=== PATIENT | male | born 1990 | race Two or more races ===

== ENCOUNTER 2017-06-13 03:47 | Emergency (ER) | payer SELFPAY ==
[~2017-06-13] VITALS: Ht 170.2 cm; Wt 59.0 kg
[2017-06-13] VITALS (7 sets, daily range): BP systolic 117–136; BP diastolic 79–89
[2017-06-13] MEDS ORDERED: LORazepam Inj 2mg/ml 1ml IM ONE (04:00)
[2017-06-13] MEDS ORDERED: Haloperidol 5mg/ml Inj IM ONE (04:00)
[2017-06-13 05:38] LABS: BASOPHILS % (AUTO) 1.6 % (0.0-2.0); EOSINOPHILS % (AUTO) 1.7 % (0.0-3.0); LYMPHOCYTES % (AUTO) 28.1 % (20.0-45.0); MEAN CORPUSCULAR HGB CONC 34.4 G/DL (32.0-36.0); MEAN CORPUSCULAR VOLUME 87 FL (80-99); MEAN PLATELET VOLUME 8.2 FL (6.5-10.1); MONOCYTES % (AUTO) 10.4 % (1.0-10.0); NEUTROPHILS % (AUTO) 58.2 % (45.0-75.0); PLATELET COUNT 262 K/UL (150-450); RED BLOOD COUNT 4.82 M/UL (4.70-6.10); RED CELL DISTRIBUTION WIDTH 10.7 % (11.6-14.8); WHITE BLOOD COUNT 7.6 K/UL (4.8-10.8)
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
[2017-06-13 05:48] LABS: ACETAMINOPHEN < 10 ug/mL (10-30); ALANINE AMINOTRANSFERASE 28 U/L (3-41); ALBUMIN/GLOBULIN RATIO 1.6 (1.0-2.7); ALCOHOL < 10 mg/dL; ANION GAP 15 (5-15); ASPARTATE AMINO TRANSFERASE 38 U/L (5-40); CALCIUM 9.2 mg/dL (8.6-10.2); CARBON DIOXIDE 23 mEQ/L (20-30); CHLORIDE 100 mEQ/L (98-107); CREATININE 0.8 mg/dL (0.7-1.2); GLOMERULAR FILTRATION RATE > 60 mL/min (>60); HEMOLYSIS 3; POTASSIUM 3.1 mEQ/L (3.4-4.9); SODIUM 138 mEQ/L (135-145); TOTAL PROTEIN 7.4 g/dL (6.6-8.7)
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
== END 2017-06-13 15:06 ==
LOC: EDBD 03:47 → EMR 04:00
DX: F68.8 Other specified disorders of adult personality and behavior (principal)
CPT/HCPCS: 36415; 80053; 80300; 85025; 96372; 99284; G0480; J1630; 80329